=== PATIENT | male | born 1945 | race Caucasian/White ===

== ENCOUNTER → 2023-09-22 16:50 | Outpatient (REF) | payer MEDICARE, BC, SELFPAY | LOC: PAVMRI 16:50 | PROVIDERS: ATTENDING PHYSICIAN Physical Medicine & Rehabilitation; FAMILY PHYSICIAN Family Medicine | DX: M54.16 Radiculopathy, lumbar region (principal) | CPT/HCPCS: 72148 ==

== ENCOUNTER → 2023-10-12 14:31 | Outpatient (REF) | payer MEDICARE, BC, SELFPAY | LOC: PAVMRI 14:31 | PROVIDERS: ATTENDING PHYSICIAN Specialist; FAMILY PHYSICIAN Family Medicine | DX: M25.511 Pain in right shoulder (principal) | CPT/HCPCS: 73221 ==

== ENCOUNTER 2024-04-27 12:39 | Emergency (ER) | payer MEDICARE, BC, SELFPAY ==
[2024-04-27 12:54] VITALS: BP 187/98
--- NOTE | 2024-04-27 14:19 | ED.GENMED ---
History of Present Illness
General
Chief Complaint: Fall
Source: patient
Exam Limitations: none
Time Seen by Provider: 04/27/24 14:19
Nursing documentation reviewed up to this point in time: agreed with
History of Present Illness
History of Present Illness:
79-year-old male with past medical hypertension, hyperlipidemia presents to the emergency department today with concerns of a left-sided frontal headache for the past 3 days. This started after falling 2 days ago and hitting the left side of his
head. Patient reports that he was walking up the stairs and when he reached the last few steps, he over stepped, tripping and falling forward, hitting his head on the carpeted floor. Patient states that he did not syncopize, he had some fleeting
neck pain at this time but currently denies any neck pain or neck injury. He was able to get up on his own and ambulate without any difficulty. He noted a mild headache at the time. The headache is relieved with Tylenol but returns after the
Tylenol wears off. Patient felt as if the headache was slightly worsening a bit. He called his primary care provider who advised him to report to the emergency department. Patient denies any paresthesias difficulty ambulating, one-sided weakness,
difficulty speaking, confusion, lightheadedness, chest pain, shortness of breath.
Past History
Past History
ED Past Medical History: HTN and Hypercholesterolemia
Social History
Tobacco: Non-smoker
Alcohol: None
Drug: None
Personal:
Living: with family
Employment: Employed
Family History
Family History: Hypertension
Review of Systems
Review of Systems
All Other Systems: ROS reviewed and negative except as documented in HPI and ROS
Phy Exam
Physical Exam
Physical Exam:
General: Patient is well appearing and in no acute distress; non-toxic
Skin: Warm and dry, no rashes or lesions
Head: Normocephalic, atraumatic. Tenderness to palpation of the left temporal region, no tenderness palpation of the facial bones.
Eyes: Sclera non-icteric. EOMs intact. PERRLA.
Neck: No tenderness palpation of the cervical spine, patient seen spontaneously moving cervical spine
Cardiac: Regular rate and rhythm, no murmurs
Pulm: Normal respiratory effort, no wheezes, rales, rhonchi
Neuro: CN II-XII intact, no focal neurologic deficits. 5 out of 5 strength in bilateral upper extremities, normal finger-nose, normal veft-sy-xtiq testing intact. Normal gait.
Psychiatric: Appropriate mood and affect.
Course
Orders/Labs/Results
Orders:
Orders
04/27/24 12:57
CT Head W/o Iv Contrast Urgent
Comment: sent in by doctor for eval
Reason For Exam: fell Wednesday + head pressure with mild KNOX
Vital Signs
Initial and Last Documented VS:
Initial Vital Signs
Temp Pulse Resp BP Pulse Ox
98.0 F 60 16 187/98 98
04/27/24 12:54 04/27/24 12:54 04/27/24 12:54 04/27/24 12:54 04/27/24 12:54
Last Documented Vital Signs
Temp Pulse Resp BP Pulse Ox
98.5 F 86 20 136/75 99
04/27/24 14:27 04/27/24 14:27 04/27/24 14:27 04/27/24 14:27 04/27/24 14:27
MDM/Problems Addressed
Differential Diagnosis Includes:
Tension headache, migraine headache, epidural hematoma, subdural hematoma
MDM/Problems Addressed:
79-year-old male with past medical history of hypertension, hyperlipidemia presents emergency department today with concerns of left-sided headache following head trauma. Patient reports that he tripped and fell 2 days ago. On physical exam, he is
well-appearing, he has a nonfocal neurologic exam, he has no signs of head or neck trauma. 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 Discussed findings
with patient. Discussed signs and symptoms of concussion. Discussed return precautions with patient. Patient will call his PCP tomorrow to schedule follow-up appointment. Patient s stable for discharge, patient will continue to take Tylenol for
pain management.
Chronic conditions affecting care:
HTN, HLP
*Pulse Oximetry
Patient hypoxic: no
*Critical Care Note
Total Time (30-74mins, 75-104mins- exclusive of procedures): Not Applicable
Data Reviewed
Review of Other/Old Records Reveals: Records (Reviewed ER physician documentation in the past, patient seen for nosebleeds) and Testing (No previous head CTs to review or compare [employer])
Source: patient and records
Prescriptions/Medications Considered But Not Given:
n/a
Further Testing Considered But Not Given:
n/a
Patient Management
Escalation/DeEscalation of care consider admission/obs:
Admit not indicated, patient stable for discharge, return precautions discussed
ED Attending Note
-
Portions of this chart may have been created with voice recognition software.� Occasional wrong word or��sound alike� substitutions may have occurred due to the inherent limitations of voice recognition software.
Discharge Plan
Departure
Patient Disposition: Home (Routine Discharge)
Date of Disposition: 04/27/24
Time of Disposition: 14:33
Patient with high blood pressure during this ER visit?: Yes
Condition: Good
Discharge Problem:
Headache
Instructions: Head injury in adults, BLOOD PRESSURE
Prescriptions:
No Action
ibuprofen [Advil Liqui-Gel] 200 MG capsule
200 mg PO DAILY PRN (Reason: pain)
lisinopril 20 MG tablet
20 mg PO DAILY
simvastatin 20 MG tablet
20 mg PO QPM
aspirin 81 mg Tablet,Delayed Release (Dr/Ec)
81 mg PO DAILY
Activity Restrictions/Additional Instructions:
You can continue to take Tylenol to manage your symptoms.
Please return to the emergency department should you experience chest pain, shortness of breath, any acute worsening of your symptoms, nausea or vomiting, loss of vision, numbness or tingling in one-sided body versus other, confusion, difficulty
speaking, difficulty walking, any other signs or symptoms concerning to you.
Please call your primary care provider in 1 week for reassessment.
Interventions
Interventions:
*Risk Screen - Suicide Last Done: 04/27/24 12:54
*General Assessment Last Done: 04/27/24 14:27
*Neglect/Abuse Screening Last Done: 04/27/24 12:54
ED- Fall Risk Assessment Last Done: 04/27/24 14:27
*ED COVID-19 Vaccine History Last Done: 04/27/24 14:27
*Nursing Disposition Last Done: 04/27/24 14:48
ED-Musculoskeletal Assessment Last Done: 04/27/24 14:27
ED- Neurological Assessment Last Done: 04/27/24 14:27
ED-Skin Assessment Last Done: 04/27/24 14:27
Discharge Date and Time
Discharge Date/Time: 04/27/24 14:49
Print Language: FAROESE
[2024-04-27 14:27] VITALS: BP 136/75; BMI 25.9
--- NOTE | 2024-04-27 14:27 | EDRN ---
Rosi DIAS currently at the pts bedside
== END 2024-04-27 14:49 | disposition home or self-care (01) ==
LOC: EMR 12:39
PROVIDERS: EMERGENCY PHYSICIAN Emergency Medicine; FAMILY PHYSICIAN Family Medicine
DX: R51.9 Headache, unspecified (principal); W10.9XXA Fall (on) (from) unspecified stairs and steps, initial encounter; I10 Essential (primary) hypertension; E78.00 Pure hypercholesterolemia, unspecified
CPT/HCPCS: 99284; 70450